=== PATIENT | female | born 1960 | race Hispanic/Latino ===

== ENCOUNTER 2017-08-08 17:18 | Emergency (ER) | payer SELFPAY ==
[2017-08-08 19:34] LABS: Bilirubin Negative (Negative); Blood, Urine Negative (Negative); Clarity CLEAR (Clear); Glucose, Urine (Dipstick) Negative (Negative); Leukocyte Negative (Negative); Nitrite Negative (Negative); Protein, Urine (Dipstick) Negative (Neg-Trace); Specific Gravity, Urine 1.025 (1.002-1.036)
== END 2017-08-08 20:24 | disposition home or self-care (01) ==
LOC: ERS 17:18
DX: M54.5 Low back pain (principal); G43.909 Migraine, unspecified, not intractable, without status migrainosus; I10 Essential (primary) hypertension; F17.210 Nicotine dependence, cigarettes, uncomplicated; E78.5 Hyperlipidemia, unspecified
CPT/HCPCS: 81003; 99283

== ENCOUNTER 2018-02-27 20:00 | Emergency (ER) | payer OTHER, SELFPAY ==
[2018-02-27] MEDS ORDERED: Lidocaine 2% PF 5 ML VIAL ONE (20:33)
[2018-02-27] MEDS ORDERED: Lidocaine 2% 10 ML INJ ONE (20:35)
[2018-02-27] MEDS ORDERED: Adacel (T-DAP) 0.5 ML VIAL ONE (21:15)
--- NOTE | 2018-02-27 21:29 | RAD ---
LEFT INDEX FINGER THREE VIEWS: HISTORY: Injury. Cut left index finger. Bleeding controlled at this time. FINDINGS: No acute fracture or dislocation is seen. No radiopaque foreign body is identified. POS: [facility]
[2018-02-27] MEDS ORDERED: Ketorolac Tromethamine 60 MG/2 ML VIAL ONE (22:05)
== END 2018-02-27 22:15 | disposition home or self-care (01) ==
LOC: ERS 20:00
DX: S61.211A Laceration without foreign body of left index finger without damage to nail, initial encounter (principal); E78.5 Hyperlipidemia, unspecified; I10 Essential (primary) hypertension; G43.909 Migraine, unspecified, not intractable, without status migrainosus; F17.210 Nicotine dependence, cigarettes, uncomplicated; Z23 Encounter for immunization; W26.8XXA Contact with other sharp object(s), not elsewhere classified, initial encounter; Y92.009 Unspecified place in unspecified non-institutional (private) residence as the place of occurrence of the external cause
CPT/HCPCS: 12001; 90471; 90715; 96372; J1885; J2001

== ENCOUNTER 2018-07-16 22:08 | Emergency (ER) | payer OTHER, SELFPAY ==
[2018-07-16] MEDS ORDERED: Aspirin Chewable 81 MG TAB ONE (22:24)
[2018-07-16] MEDS ORDERED: Nitroglycerin 2% Ointment 1 INCH/1 GM Packet ONE (22:26)
--- NOTE | 2018-07-16 22:53 | RAD ---
CHEST ONE VIEW: History: Headache, dizziness and chest. Comparison: 07-20-15 FINDINGS: Lungs are clear. No pneumothorax or effusion. Cardiac silhouette and mediastinal contours are within normal limits. IMPRESSION: No acute intrathoracic abnormality. POS: [facility]
[2018-07-16 22:56] LABS: #Basophils 0.1 thou/uL (0.0-0.2); #Eosinphils 0.2 thou/uL (0.0-0.7); #Lymphocytes 5.1 thou/uL (1.20-3.40); #Monocytes 0.7 thou/uL (0.11-0.59); #Neutrophils 6.3 thou/uL (1.40-6.50); %Basophils 0.6 % (0.0-1.0); %Eosinophils 1.2 % (0.0-10.0); %Lymphocytes 41.6 % (21.0-51.0); %Monocytes 5.3 % (0.0-10.0); %Neutrophils 51.4 % (42.0-75.0); Hemoglobin 15.2 g/dL (12.0-16.0); Mean Corpuscular Hemoglobin 32.7 pg (27.0-31.0); Mean Corpuscular Volume 96.1 fL (78.0-98.0); Mean Platelet Volume 8.4 fL (7.4-10.4); Platelet Count 263 thou/uL (130-400); Red Blood Cell (RBC) Count 4.64 mill/uL (4.20-5.40); White Blood Cell (WBC) Count 12.3 thou/uL (4.8-10.8)
[2018-07-16 23:16] LABS: ALT (SGPT) 37 U/L (8-55); AST (SGOT) 26 U/L (5-34); Albumin 4.5 g/dL (3.5-5.0); Alkaline Phosphatase 113 U/L (40-150); Anion Gap 16 mmol/L (10-20); BUN (Urea Nitrogen) 18 mg/dL (9.8-20.1); Bilirubin, Total 0.2 mg/dL (0.2-1.2); Calc. Creatinine Clearance 0 mL/min (70-130); Calcium 9.8 mg/dL (7.8-10.44); Carbon Dioxide 23 mmol/L (22-29); Chloride 104 mmol/L (98-107); Estimated GFR-MDRD 87; Globulin 3.1 g/dL (2.4-3.5); Glucose 83 mg/dL (70-105); Lipase 35 U/L (8-78); Potassium 3.7 mmol/L (3.5-5.1); Protein, Total 7.6 g/dL (6.0-8.3); Sodium 139 mmol/L (136-145)
[2018-07-16 23:17] LABS: Bilirubin Negative (Negative); Blood, Urine Negative (Negative); Clarity TURBID (Clear); Glucose, Urine (Dipstick) Negative (Negative); Leukocyte Negative (Negative); Nitrite Negative (Negative); Protein, Urine (Dipstick) Negative (Neg-Trace); Specific Gravity, Urine 1.014 (1.002-1.036); Urobilinogen 0.2 mg/dL (0.2-1.0); pH, Urine 7.5 (5.0-9.0)
[2018-07-16] MEDS ORDERED: Diazepam 5 MG TAB ONE (23:33)
[2018-07-17] MEDS ORDERED: Ketorolac Tromethamine 30 MG/ML VIAL ONE (00:21)
[2018-07-17 01:55] LABS: Troponin I Less than 0.010 ng/mL (< 0.028)
== END 2018-07-17 02:23 | disposition home or self-care (01) ==
LOC: ERS 22:08
DX: F41.9 Anxiety disorder, unspecified (principal); R07.2 Precordial pain; R03.0 Elevated blood-pressure reading, without diagnosis of hypertension; R51 Headache; E78.5 Hyperlipidemia, unspecified; I10 Essential (primary) hypertension; G43.909 Migraine, unspecified, not intractable, without status migrainosus; F17.210 Nicotine dependence, cigarettes, uncomplicated
CPT/HCPCS: 36415; 71045; 80053; 81003; 83690; 83880; 84484; 85025; 85379; 87804; 93005; 94640; 96374; J1885; J7620

== ENCOUNTER 2018-12-19 23:28 | Emergency (ER) | payer SELFPAY ==
[2018-12-20] MEDS ORDERED: Morphine 4 MG/ML VIAL ONE (00:13)
[2018-12-20] MEDS ORDERED: Ondansetron PF 4 MG/2 ML Vial ONE (00:13)
[2018-12-20 00:29] LABS: #Basophils 0.1 thou/uL (0.0-0.2); #Eosinphils 0.1 thou/uL (0.0-0.7); #Lymphocytes 4.1 thou/uL (1.20-3.40); #Monocytes 0.6 thou/uL (0.11-0.59); #Neutrophils 5.8 thou/uL (1.40-6.50); %Basophils 0.7 % (0.0-1.0); %Eosinophils 1.2 % (0.0-10.0); %Monocytes 5.9 % (0.0-10.0); %Neutrophils 54.2 % (42.0-75.0); Mean Corpuscular HGB CONC 34.2 g/dL (32.0-36.0); Mean Corpuscular Hemoglobin 32.5 pg (27.0-31.0); Mean Corpuscular Volume 95.1 fL (78.0-98.0); Mean Platelet Volume 7.6 fL (7.4-10.4); Platelet Count 253 thou/uL (130-400); RBC Distribution Width 12.1 % (11.5-14.5); Red Blood Cell (RBC) Count 4.32 mill/uL (4.20-5.40); White Blood Cell (WBC) Count 10.7 thou/uL (4.8-10.8)
[2018-12-20 00:52] LABS: ALT (SGPT) 38 U/L (8-55); AST (SGOT) 39 U/L (5-34); Alkaline Phosphatase 114 U/L (40-150); Anion Gap 13 mmol/L (10-20); BUN (Urea Nitrogen) 18 mg/dL (9.8-20.1); Bilirubin, Total 0.3 mg/dL (0.2-1.2); CK (CPK) 124 U/L (29-168); Calc. Creatinine Clearance 0 mL/min (70-130); Calcium 9.2 mg/dL (7.8-10.44); Carbon Dioxide 25 mmol/L (22-29); Chloride 105 mmol/L (98-107); Estimated GFR-MDRD 88; Globulin 2.8 g/dL (2.4-3.5); Glucose 146 mg/dL (70-105); Lipase 43 U/L (8-78); Potassium 3.8 mmol/L (3.5-5.1); Protein, Total 6.8 g/dL (6.0-8.3); Sodium 139 mmol/L (136-145)
[2018-12-20] MEDS ORDERED: Mag-Al 1200 mg/1200 mg/30 ML UDCUP ONE (01:10)
[2018-12-20] MEDS ORDERED: Lidocaine Viscous Sol 2% 15 ml UD Cup ONE (01:10)
[2018-12-20 01:34] LABS: Bilirubin Negative (Negative); Blood, Urine Negative (Negative); Clarity Turbid (Clear); Glucose, Urine (Dipstick) Normal (Negative); Leukocyte Negative Leu/uL (Negative); Nitrite Negative (Negative); Protein, Urine (Dipstick) Negative (Neg-Trace); Urobilinogen Normal mg/dL (Less than 2)
[2018-12-20] MEDS ORDERED: Ketorolac Tromethamine 30 MG/ML VIAL ONE (05:19)
--- NOTE | 2018-12-20 07:59 | ULT ---
PRELIMINARY REPORT/[facility]/EMERGENCY AFTER HOURS PROCEDURE: EXAM: US Abdomen Limited, Right Upper Quadrant EXAM DATE/TIME: 12/20/2018 2:34 AM CLINICAL HISTORY: 58 years old, female; Abdominal pain; Patient HX: Epigastric pain x 1 wk, worse tonight TECHNIQUE: Imaging protocol: Real-time ultrasound of the abdomen with image documentation. Examination was focused on the right upper quadrant. COMPARISON: No relevant prior studies available. FINDINGS: Liver: The liver measures 17.9 cm in length. No liver mass. Mild increased echogenicity of the liver. Gallbladder: No gallstones. Mild gallbladder wall thickening at 4 mm. The sonographic Dean sign was reported as positive. Questionable pericholecystic fluid. Common bile duct: The common bile duct measures 0.72 cm. Pancreas: No pancreatic mass. Minimal pancreatic duct dilation to 0.27 cm. Right kidney: Normal appearance of the right kidney with normal cortical echogenicity and without hydronephrosis or mass. The right kidney measures 11.7 x 4.2 x 5.1 cm. Portal venous: The portal vein is patent with normal hepatopedal flow. IMPRESSION: 1. Mild prominence of the common bile duct and pancreatic duct. If there are obstructive laboratory values, consider MRCP to evaluate for distal common bile duct/ampullary obstruction. 2. Mild gallbladder wall thickening, questionable pericholecystic fluid and positive sonographic Dean sign reported. No cholelithiasis. Findings are indeterminate for acute cholecystitis. Please correlate with signs and symptoms. Nuclear medicine biliary scan could help determine cystic duct patency. 3. Mildly enlarged liver and hepatic steatosis. Thank you for allowing us to participate in the care of your patient. Dictated and Authenticated by: Carisa Vilchis MD 12/20/2018 4:29 AM Central Time ([place] & [place]) FINAL REPORT BY DR. [facility]T EMERGENCY AFTER HOURS STUDY ULTRASOUND ABDOMEN LIMITED: (RIGHT UPPER QUADRANT) DATE: 12/20/2018 HISTORY: 58-year-old female with epigastric pain. FINDINGS: Gallbladder:Tiny amount of pericholecystic fluid. Minimally thickened gallbladder wall, 4 mm. No sono graphic Dean's sign. No gallstones or sludge identified. Common duct: 7 mm. Liver:Size and echogenicity within normal limits. Pancreas:Nonspecific sonographic appearance. Minimal prominence of pancreatic duct. Right kidney:No hydronephrosis. Minor disagreements with preliminary report by [facility]. No major disagreement. IMPRESSION: 1. Tiny amount of pericholecystic fluid and minimally thickened gallbladder wall, but without evidenc e of cholelithiasis. Nonspecific. If there is clinical concern for cholecystitis, consider nuclear medicine hepatobiliary scan. 2. Common duct caliber at upper limits of normal. If there is elevated serum bilirubin, consider MRCP or CT abdomen with contrast. Transcribed Date/Time: 12/20/2018 8:22 AM
--- NOTE | 2018-12-20 09:02 | RAD ---
PORTABLE CHEST: Date: 12/20/18 PROVIDED CLINICAL HISTORY: Epigastric pain. FINDINGS: Comparison with 07/16/18. Cardiac and mediastinal silhouette is within normal limits for portable technique. No focal consolida tion, pleural fluid, or pneumothorax apparent. IMPRESSION: No evidence for an acute cardiopulmonary process. POS: [facility]
== END 2018-12-20 07:12 | disposition home or self-care (01) ==
LOC: ERS 23:28
DX: K80.50 Calculus of bile duct without cholangitis or cholecystitis without obstruction (principal); E78.5 Hyperlipidemia, unspecified; I10 Essential (primary) hypertension; F17.210 Nicotine dependence, cigarettes, uncomplicated; G43.909 Migraine, unspecified, not intractable, without status migrainosus
CPT/HCPCS: 71045; 76705; 80053; 81003; 82550; 83690; 83880; 84484; 85025; 93005; 96361; 96374; 96375; J1885; J2270; J2405

== ENCOUNTER 2019-03-06 07:38 | Emergency (ER) | payer SELFPAY ==
[2019-03-06 08:29] LABS: #Basophils 0.1 thou/uL (0.0-0.2); #Eosinphils 0.2 thou/uL (0.0-0.7); #Lymphocytes 3.9 thou/uL (1.20-3.40); #Monocytes 0.6 thou/uL (0.11-0.59); #Neutrophils 7.8 thou/uL (1.40-6.50); %Basophils 0.8 % (0.0-1.0); %Eosinophils 1.4 % (0.0-10.0); %Lymphocytes 31.2 % (21.0-51.0); %Monocytes 4.5 % (0.0-10.0); %Neutrophils 62.1 % (42.0-75.0); Hemoglobin 16.1 g/dL (12.0-16.0); Mean Corpuscular HGB CONC 34.2 g/dL (32.0-36.0); Mean Corpuscular Hemoglobin 32.3 pg (27.0-31.0); Mean Corpuscular Volume 94.5 fL (78.0-98.0); Mean Platelet Volume 8.4 fL (7.4-10.4); Platelet Count 274 thou/uL (130-400); RBC Distribution Width 12.1 % (11.5-14.5); Red Blood Cell (RBC) Count 4.98 mill/uL (4.20-5.40); White Blood Cell (WBC) Count 12.5 thou/uL (4.8-10.8)
[2019-03-06 08:43] LABS: ALT (SGPT) 39 U/L (8-55); AST (SGOT) 28 U/L (5-34); Albumin 4.5 g/dL (3.5-5.0); Alkaline Phosphatase 100 U/L (40-110); Anion Gap 13 mmol/L (10-20); BUN (Urea Nitrogen) 14 mg/dL (9.8-20.1); Bilirubin, Total 0.4 mg/dL (0.2-1.2); Calc. Creatinine Clearance 0 mL/min (70-130); Calcium 9.5 mg/dL (7.8-10.44); Carbon Dioxide 26 mmol/L (22-29); Chloride 105 mmol/L (98-107); Estimated GFR-MDRD 79; Globulin 3.3 g/dL (2.4-3.5); Glucose 108 mg/dL (70-105); Potassium 3.6 mmol/L (3.5-5.1); Protein, Total 7.8 g/dL (6.0-8.3); Sodium 140 mmol/L (136-145)
--- NOTE | 2019-03-06 08:52 | CT ---
CT BRAIN WITHOUT CONTRAST HISTORY: Hypertension, dizziness, vomiting. FINDINGS: Comparison is made with the exam of 07/21/2015. No evidence of acute infarct, hemorrhage, midline shift, or abnormal extraaxial fluid collections are seen. The ventricular size is normal and the basilar cisterns are patent. The bony calvarium is in tact. The visualized paranasal sinuses and mastoid air cells are well aerated. IMPRESSION: No CT evidence of acute intracranial process. POS: [facility]
[2019-03-06] MEDS ORDERED: Meclizine HCl 25 MG TAB ONE (08:57)
[2019-03-06] MEDS ORDERED: Diazepam 5 MG TAB ONE (09:45)
--- NOTE | 2019-03-10 14:39 | EKG ---
Test Reason : CP Blood Pressure : / mmHG Vent. Rate : 063 BPM Atrial Rate : 063 BPM P-R Int : 144 ms QRS Dur : 092 ms QT Int : 424 ms P-R-T Axes : 030 016 041 degrees QTc Int : 433 ms Normal sinus rhythm Normal ECG Confirmed by YASMIN LOVE DO ([id number]), book or script editor JOSE ANTONIO MILLER ([id number]) on 03/10/2019 2:38:54 PM Referred By: KATE Confirmed By:YASMIN LOVE DO
== END 2019-03-06 10:32 | disposition home or self-care (01) ==
LOC: ERS 07:38
DX: R42 Dizziness and giddiness (principal); E78.5 Hyperlipidemia, unspecified; E78.00 Pure hypercholesterolemia, unspecified; I10 Essential (primary) hypertension; G43.909 Migraine, unspecified, not intractable, without status migrainosus; F32.9 Major depressive disorder, single episode, unspecified; F17.210 Nicotine dependence, cigarettes, uncomplicated; Z79.899 Other long term (current) drug therapy
CPT/HCPCS: 70450; 80053; 84484; 85025; 93005; 96360; J8597

== ENCOUNTER 2023-04-21 19:31 | Emergency (ER) | payer SELFPAY ==
[2023-04-21] MEDS ORDERED: Ketorolac Tromethamine 30 MG/ML VIAL ONE (21:39)
== END 2023-04-21 21:30 | disposition home or self-care (01) ==
LOC: ERS 19:31
DX: J06.9 Acute upper respiratory infection, unspecified (principal); R51.9 Headache, unspecified; I10 Essential (primary) hypertension; F17.210 Nicotine dependence, cigarettes, uncomplicated
CPT/HCPCS: 96372; 99283; J1885